=== PATIENT | male | born 1990 | race Caucasian/White ===

== ENCOUNTER 2019-03-30 22:37 | Emergency (ER) | payer OTHER ==
[~2019-03-30] VITALS: Ht 175.3 cm; Wt 73.9 kg
--- NOTE | 2019-03-30 23:00 | NUR ---
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 Pt states he had alcohol with dinner. Pt is A/O x 4 and speaking in complete sentences with no neurological deficits. Pt states, "My ears went out and I blacked out, it was weird. I feel floaty and shaky and delayed."
[2019-03-30] MEDS ORDERED: ONDANSETRON 4 MG/2 ML VIAL ONE (23:14)
[2019-03-30] MEDS ORDERED: IV NORMAL SALINE 1000 ML BAG IV ONE (23:15)
[2019-03-30] MEDS ORDERED: ONDANSETRON 4 MG/2 ML VIAL IV ONE (23:15)
[2019-03-30 23:30] LABS: BASOPHILS # (AUTO) 0.1 K/uL (0.0-8.0); EOSINOPHILS # (AUTO) 0.1 K/uL (0.0-0.7); EOSINOPHILS % (AUTO) 1.6 % (0.0-7.0); HEMATOCRIT 45.1 % (36.7-47.1); HEMOGLOBIN 15.5 g/dL (12.5-16.3); LYMPHOCYTES # (AUTO) 1.9 K/uL (20.0-40.0); LYMPHOCYTES % (AUTO) 30.9 % (20.5-51.5); MEAN CORPUSCULAR HGB CONC 34 g/dL (32.5-36.3); MONOCYTES # (AUTO) 0.6 K/uL (2.0-10.0); MONOCYTES % (AUTO) 9.3 % (0.0-11.0); NEUTROPHILS # (AUTO) 3.6 K/uL (1.8-8.9); NEUTROPHILS % (AUTO) 57.2 % (38.5-71.5); PLATELET COUNT (AUTO) 258 K/uL (152-348); RED BLOOD CELL COUNT(AUTO) 5.01 MIL/uL (4.06-5.63); WHITE BLOOD COUNT (AUTO) 6.3 K/uL (3.6-10.2)
[2019-03-30 23:43] LABS: BILIRUBIN,DIRECT 0.1 mg/dL (0.0-0.2); BILIRUBIN,TOTAL 0.4 mg/dL (0.2-1.0); POTASSIUM 3.8 mmol/L (3.5-5.1); TOTAL PROTEIN, SERUM 7.7 g/dL (6.4-8.2)
--- NOTE | 2019-03-31 00:10 | NUR ---
IV removed. Catheter intact and site benign. Pressure and 4x4 gauze applied to site. No bleeding noted. Patient discharged to home in stable conditon. Written and verbal after care instructions given. Patient verbalizes understanding of instructions. Patient ambulated out of ER with stable gait.
[2019-03-31 00:11] VITALS: BP 116/68
== END 2019-03-31 00:10 | disposition home or self-care (01) ==
LOC: ER 22:37
DX: R55 Syncope and collapse (principal)
CPT/HCPCS: 36415; 80048; 80076; 84484; 85025; 93005; 96374; 99284; J2405; 70030-TC; A4663; J7030